=== PATIENT | female | born 1970 | race Caucasian/White ===

== ENCOUNTER 2017-01-19 20:49 | Emergency (ER) | payer OTHER ==
--- NOTE | 2017-01-19 22:23 | UC ---
Hip/Pelvis Pain - HPI Summary HPI Summary: The patient comes in today for: 1. Left hip pain: Onset: Yesterday. She fell at 12:30 at work landing on her left side. Palliative/provocative: Pressure on the area makes it worse. Quality: Soreness Region: Left hip Severity: 10 Time: Constant. Associated symptoms: Event: She fell yesterday at work and hit her head on a dumpster and landing on her left side. She went back to work. She has been taking ibuprofen. PCP: None. No LOC. Headache: Present Nausea or vomiting: None. She denies any disorientation or confusion. No history of siezure--a colleague helped her up. Not on warfarin, No amnesia. * - History Of Current Complaint Stated Complaint: LEFT HIP PAIN (WC) Time Seen by Provider: 01/19/17 22:08 Hx Obtained From: Patient Hx Last Menstrual Period: 4 weeks ago. - Allergies/Home Medications Allergies/Adverse Reactions: Allergies Allergy/AdvReac Type Severity Reaction Status Date / Time Hydrocodone AdvReac Intermediate Itching Verified 01/19/17 22:46 PMH/Surg Hx/FS Hx/Imm Hx Previously Healthy: Yes Other History Of: Negative For: HIV, Hepatitis B, Hepatitis C, Anticoagulant Therapy - Surgical History Surgical History: Yes Surgery Procedure, Year, and Place: cyst removed right breast, right shoulder rotator cuff repair. ADIANNA [employer]ILS - Family History Known Family History: Positive: Cardiac Disease - dad with CA under age 50, Diabetes - Social History Occupation: Employed Full-time Alcohol Use: None Substance Use Type: None Smoking Status (MU): Heavy Every Day Tobacco Smoker Type: Cigarettes Amount Used/How Often: 1/2 pack per day Length of Time of Smoking/Using Tobacco: age 16 Have You Smoked in the Last Year: Yes Household Exposure Type: Cigarettes - Immunization History Most Recent Influenza Vaccination: none Review of Systems Constitutional: Negative Skin: Negative Eyes: Negative ENT: Negative Respiratory: Negative Cardiovascular: Negative Gastrointestinal: Negative Genitourinary: Negative Musculoskeletal: Arthralgia Neurological: Headache All Other Systems Reviewed And Are Negative: Yes Physical Exam Triage Information Reviewed: Yes Appearance: Well-Appearing, No Pain Distress, Well-Nourished Vital Signs Reviewed: Yes Eyes: Positive: Conjunctiva Clear. Negative: Discharge ENT: Positive: Hearing grossly normal. Negative: Pharyngeal erythema, Nasal congestion, Nasal drainage, TM bulging, TM dull, TM red, Tonsillar swelling, Tonsillar exudate Dental: Negative: Gross Decay/Caries @, Dental Fracture @ Neck: Positive: Supple, Nontender, No Lymphadenopathy. Negative: Nuchal Rigidity Respiratory: Positive: Lungs clear, No respiratory distress, No accessory muscle use. Negative: Crackles, Wheezing Cardiovascular: Positive: RRR, No Murmur Abdomen Description: Positive: Nontender, No Organomegaly, Soft. Negative: Distended, Guarding Musculoskeletal: Positive: Strength Intact, ROM Intact, Edema @ - She has left greater trochanteric ecchymosis and tenderness., Other: - Back of head: no lesions, no tenderness, no swelling. Neurological: Positive: Alert, Muscle Tone Normal Psychological: Positive: Age Appropriate Behavior, Consolable Skin: Positive: rashes - ecchymosis of the left lateral hip area. No abrasion. Diagnostics - Radiology No standard instances Xray Interpretation: No Acute Changes Radiology Interpretation Completed By: Radiologist - IMPRESSION: No radiographic evidence for LEFT hip fracture. As x-rays may be negative with nondisplaced hip fracture if there is persistent clinical concern MRI or in setting of contraindication to MRI or limitation in emergent access to MRI CT would be suggested. Hip Injury Course/Dx - Course Course Of Treatment: Patient told of the negative x-ray reading. - Differential Dx/Diagnosis Provider Diagnoses: Contusion of the left leg/left greater trochanteric bursitis. Discharge - Discharge Plan Condition: Stable Disposition: HOME Patient Education Materials: Contusion in Adults (ED), Hip Bursitis (ED) Referrals: No Primary Care Phys,NOPCP [Primary Care Provider] - 1 Week (Please see your primary care provider in about a week. If you don't have a primary care provider, please reference the included sheet of local provider. If you get worse, please be seen sooner.)
[2017-01-19] MEDS ORDERED: Acetaminophen TAB* 325 MG PO ONE (22:26)
[2017-01-19 22:57] VITALS: BP 107/66
--- NOTE | 2017-01-19 22:58 | RAD ---
Indication: Posterior LEFT hip pain post fall. Comparison: June 21, 2012 Technique: AP pelvis and AP and frog-leg lateral views LEFT hip. Report: Normal articular alignment at the LEFT hip and pelvis. No fracture of the LEFT hip or pelvis evident. Minimal bilateral hip joint osteophytosis. Negative for significant joint space narrowing. Unremarkable soft tissue contours. IMPRESSION: No radiographic evidence for LEFT hip fracture. As x-rays may be negative with nondisplaced hip fracture if there is persistent clinical concern MRI or in setting of contraindication to MRI or limitation in emergent access to MRI CT would be suggested.
--- NOTE | 2017-01-20 11:58 | UC ---
Progress - Progress Note Progress Note: NOTE FOR OUT OF WORK TODAY AND MONDAY PROVIDED. PT CAN SEE [facility] IF SHE CHOOSES. CALL [phone] TO SCHEDULE AN APPT IF DESIRED. CALL WITH ANY NEW QUESTIONS OR CONCERNS.
== END 2017-01-19 23:23 | disposition home or self-care (01) ==
LOC: UCCORT 20:49
DX: Z72.0 Tobacco use (principal); S70.12XA Contusion of left thigh, initial encounter; W18.39XA Other fall on same level, initial encounter; Y93.9 Activity, unspecified; Y92.69 Other specified industrial and construction area as the place of occurrence of the external cause; Y99.0 Civilian activity done for income or pay
CPT/HCPCS: 99212; A9270-GY; G0463

== ENCOUNTER 2018-03-28 09:36 | Emergency (ER) | payer OTHER ==
[2018-03-28 10:17] VITALS: BP 104/69
--- NOTE | 2018-03-28 10:39 | ED ---
Throat Pain/Nasal Congestion - HPI Summary HPI Summary: 47 yr old with sinus pressure, post nasal drip, coughing for 6 days. She has had fever and chills. Denies SOB. She is a smoker. - History of Current Complaint Chief Complaint: UCRespiratory Time Seen by Provider: 03/28/18 10:22 - Allergies/Home Medications Allergies/Adverse Reactions: Allergies Allergy/AdvReac Type Severity Reaction Status Date / Time hydrocodone Allergy Unknown ITHCHING Verified 03/28/18 10:08 Home Medications: Home Medications Ibuprofen TAB* [Advil TAB*] 800 mg PO Q6H PRN 03/28/18 [History Confirmed ] PMH/Surg Hx/FS Hx/Imm Hx Endocrine/Hematology History: Denies: Hx Anticoagulant Therapy, Hx Diabetes, Hx Thyroid Disease Cardiovascular History: Denies: Hx Congestive Heart Failure, Hx Deep Vein Thrombosis, Hx Hypertension , Hx Myocardial Infarction, Hx Pacemaker/ICD Respiratory History: Denies: Hx Asthma, Hx Chronic Obstructive Pulmonary Disease (COPD), Hx Lung Cancer, Hx Pneumonia, Hx Pulmonary Embolism GI History: Denies: Hx Gall Bladder Disease, Hx Gastrointestinal Bleed, Hx Ulcer, Hx Urosepsis History: Denies: Hx Kidney Stones, Hx Renal Disease Neurological History: Denies: Hx Dementia, Hx Migraine, Hx Seizures, Hx Transient Ischemic Attacks (TIA) Psychiatric History: Denies: Hx Anxiety, Hx Depression, Hx Schizophrenia, Hx Bipolar Disorder - Cancer History Hx Chemotherapy: No Hx Radiation Therapy: No - Surgical History Surgery Procedure, Year, and Place: cyst removed right breast, right shoulder rotator cuff repair. ADIANNA [employer] Infectious Disease History: No Infectious Disease History: Denies: Hx Clostridium Difficile, Hx Hepatitis, Hx Human Immunodeficiency Virus (HIV), Hx of Known/Suspected MRSA, Hx Shingles, Hx Tuberculosis, Hx Known/ Suspected VRE, Hx Known/Suspected VRSA, History Other Infectious Disease, Traveled Outside the [place] in Last 30 Days - Family History Known Family History: Positive: None, Cardiac Disease - dad with CT under age 50 , Diabetes - Social History Lives: With Family Alcohol Use: Rare Substance Use Type: Reports: None Hx Tobacco Use: Yes Smoking Status (MU): Heavy Every Day Tobacco Smoker Type: Cigarettes Amount Used/How Often: 1/2 pack per day Length of Time of Smoking/Using Tobacco: age 16 Have You Smoked in the Last Year: Yes Review of Systems Constitutional: Negative Positive: Nasal Discharge Positive: Cough All Other Systems Reviewed And Are Negative: Yes Physical Exam Triage Information Reviewed: Yes Vital Signs On Initial Exam: Initial Vitals Temp Pulse Resp BP Pulse Ox 98.6 F 81 20 104/69 97 03/28/18 10:10 03/28/18 10:10 03/28/18 10:10 03/28/18 10:10 03/28/18 10:10 Vital Signs Reviewed: Yes Appearance: Positive: Well-Appearing, No Pain Distress Skin: Positive: Warm, Skin Color Reflects Adequate Perfusion Head/Face: Positive: Normal Head/Face Inspection Eyes: Positive: EOMI ENT: Positive: TMs normal, Sinus tenderness, Uvula midline. Negative: Muffled voice, Hoarse voice Neck: Positive: Nontender Respiratory/Lung Sounds: Positive: Clear to Auscultation, Breath Sounds Present Cardiovascular: Positive: RRR. Negative: Murmur Abdomen Description: Positive: Nontender Musculoskeletal: Positive: Strength/ROM Intact Neurological: Positive: Sensory/Motor Intact, Alert, Oriented to Person Place, Time, CN Intact II-III Psychiatric: Positive: Normal Diagnostics - Vital Signs Vital Signs Temp Pulse Resp BP Pulse Ox 03/28/18 10:10 98.6 F 81 20 104/69 97 - Laboratory Lab Statement: Any lab studies that have been ordered have been reviewed, and results considered in the medical decision making process. EENT Course/Dx - Course Course Of Treatment: 47 yr old female with sinusitis. Rx Cefdinir - Diagnoses Provider Diagnoses: Sinusitis Discharge - Sign-Out/Discharge Documenting (check all that apply): Patient Departure All imaging exams completed and their final reports reviewed: No Studies - Discharge Plan Condition: Good Disposition: HOME Prescriptions: Cefdinir [Cefdinir 300 MG CAP] 300 mg PO BID #20 cap Patient Education Materials: Sinusitis (ED) Referrals: No Primary Care Phys,NOPCP [Primary Care Provider] - [facility] [place] [facility]FERR[facility] [Outside] - 4 Days - Billing Disposition and Condition Condition: GOOD Disposition: Home
== END 2018-03-28 10:40 | disposition home or self-care (01) ==
LOC: UCCORT 09:36
DX: J32.9 Chronic sinusitis, unspecified (principal); Z88.6 Allergy status to analgesic agent; F17.210 Nicotine dependence, cigarettes, uncomplicated
CPT/HCPCS: 99212; G0463

== ENCOUNTER 2018-06-03 13:12 | Emergency (ER) | payer OTHER ==
[2018-06-03 13:51] VITALS: BP 103/70
--- NOTE | 2018-06-03 14:10 | UC ---
HPI BURN - HPI Summary HPI Summary: 47 year old female states she accidentally touched the top of her wood stove last evening with the lateral aspect of her right hand. States she was carrying some wood and lost her balance and reached out touching stove. Immediately blistered up and large blister to proximal end of burn opened up. Reports small amount of clear drainage from blister. Pain is well managed with OTC naproxen. Denies fever or chills. - History of Current Complaint Chief Complaint: UCBurn Stated Complaint: BURN ON RIGHT WRIST AND HAND Time Seen by Provider: 06/03/18 13:55 Hx Obtained From: Patient Hx Last Menstrual Period: EARLY FEBRUARY , HAS ADIANNA IMPLANT Occurred: Hours Ago Length of Exposure: Seconds Current Severity: Moderate Pain Intensity: 7 Location: RUE - See HPI Character: Direct Thermal Contact Alleviating Factor(s): Cool Soaks, Other - OTC analgesic Occupational Injury: No - Allergy/Home Medications Allergies/Adverse Reactions: Allergies Allergy/AdvReac Type Severity Reaction Status Date / Time hydrocodone AdvReac Unknown Itching Verified 06/03/18 13:46 Home Medications: Home Medications Naproxen Sodium [Naproxen 220 mg] 440 mg PO Q12H PRN 06/03/18 [History Confirmed 06/03/18] PMH/Surg Hx/FS Hx/Imm Hx Previously Healthy: Yes - Denies significant PMH Other History Of: Negative For: HIV, Hepatitis B, Hepatitis C, Anticoagulant Therapy - Surgical History Surgical History: Yes Surgery Procedure, Year, and Place: cyst removed right breast, right shoulder rotator cuff repair. ADIANNA [employer]ILS - Family History Known Family History: Positive: Cardiac Disease - dad with PA under age 50, Diabetes - Social History Occupation: Employed Full-time Lives: With Family Alcohol Use: Rare Substance Use Type: None Smoking Status (MU): Heavy Every Day Tobacco Smoker Type: Cigarettes Amount Used/How Often: 1/2 PPD Length of Time of Smoking/Using Tobacco: Since Age 16 Have You Smoked in the Last Year: Yes Household Exposure Type: Cigarettes - Immunization History Most Recent Influenza Vaccination: none Most Recent Tetanus Shot: ~2015 Most Recent Pneumonia Vaccination: N/A Review of Systems All Other Systems Reviewed And Are Negative: Yes Constitutional: Positive: Negative Skin: Positive: Other - See HPI Motor: Positive: Negative Neurovascular: Positive: Negative Musculoskeletal: Positive: Negative Is Patient Immunocompromised?: No Physical Exam Triage Information Reviewed: Yes Appearance: Well-Appearing, No Pain Distress, Well-Nourished Vital Signs: Initial Vital Signs Temp 98.1 F 06/03/18 13:43 Pulse 80 06/03/18 13:43 Resp 16 06/03/18 13:43 BP 103/70 06/03/18 13:43 Pulse Ox 99 06/03/18 13:43 Respiratory: Positive: Lungs clear, Normal breath sounds, No respiratory distress Cardiovascular: Positive: RRR, No Murmur, Pulses Normal, Brisk Capillary Refill Musculoskeletal Exam: Normal Neurological: Positive: Alert, Other: - Sensation intact distally Skin: Positive: Significant Lesion(s) - See diagram Images Hands: 1 - 2nd degree burn measuring 9.5 x 2.5 cm with open area measuring 3.5 x 2.5 cm to the proximal end of the burn. Blister intact to remaining burn. No evidence of infection. Burn Calculation - [place] Formula for Fluid Resuscitation Weight: 135 lb 24 -Hour Fluid Replacement: 0.0 Course/Dx Burn - Course Course Of Treatment: 47 year old female accidentally touched the top of her wood stove last evening with the lateral aspect of her right hand. Sustained 2nd degree armstrong with both open and intact blisters. No evidence of infection. The wound was cleansed with soap and water, antibiotic ointment applied, and non -stick gauze dressing applied. Wound care and warning symptoms were discussed with patient. She is to follow up with her PCP in 7 days for wound check. - Differential Dx - Burn Differential Diagnoses: Direct Contact Thermal Burn - Diagnoses Clinic Provider Diagnoses: 2nd degree burn right hand Discharge - Sign-Out/Discharge Documenting (check all that apply): Patient Departure All imaging exams completed and their final reports reviewed: No Studies - Discharge Plan Condition: Stable Disposition: HOME Patient Education Materials: Second Degree Burn (ED) Forms: *Work Release Referrals: No Primary Care Phys,NOPCP [Primary Care Provider] - Additional Instructions: Gently clean the wound with a mild soap and water twice daily. Apply an antibiotic ointment such as bacitracin to the the wound and cover with a non- stick bandage. This should be changed twice daily or any time the dressing becomes wet or soiled. Use over the counter pain medication such as acetaminophen (Tylenol), ibuprofen (Advil, Motrin), or naproxen (Aleve) according to directions as needed for pain. Follow up with your primary care provider in 7 days for a wound check. Watch for signs of infection including fever greater than 100.5 F, pain that is not managed by pain medication, redness that spreads, increased swelling, pus draining from wound, or any worsening of symptoms. Seek immediate medical attention if any of these occur. - Billing Disposition and Condition Condition: STABLE Disposition: Home - Attestation Statements Provider Attestation: Per institutional requirements, I have reviewed the chart, however, I was not consulted specifically or made aware of this patient by the midlevel provider. I did not personally evaluate, interact with , or disposition this patient.
== END 2018-06-03 14:35 | disposition home or self-care (01) ==
LOC: UCCORT 13:12
DX: T23.251A Burn of second degree of right palm, initial encounter (principal); T31.0 Burns involving less than 10% of body surface; X15.0XXA Contact with hot stove (kitchen), initial encounter; Y93.89 Activity, other specified; Y92.009 Unspecified place in unspecified non-institutional (private) residence as the place of occurrence of the external cause; Z88.5 Allergy status to narcotic agent; F17.210 Nicotine dependence, cigarettes, uncomplicated
CPT/HCPCS: 16020; 99211; G0463

== ENCOUNTER 2019-10-03 15:16 | Emergency (ER) | payer OTHER ==
[2019-10-03 16:01] VITALS: BP 97/71
[2019-10-03 17:46] LABS: Influenza A Molecular Negative (Negative); Influenza B Molecular Negative (Negative)
--- NOTE | 2019-10-03 18:03 | UC ---
Respiratory Complaint HPI - HPI Summary HPI Summary: 49 yo female with about 24 hour hx of nasal congestion/cough/profound fatigue/ myalgias and intermittent dyspnea cough not productive has felt feverish/no documented fever + chills no chest pain she states her coworker at [employer] is currently under quarantine due to exposure to person with Covid-19\ she cleaned his room - History of Current Complaint Chief Complaint: UCRespiratory Stated Complaint: ACHY RUNNY NOSE WEAK Time Seen by Provider: 10/03/19 18:01 Hx Obtained From: Patient Hx Last Menstrual Period: EARLY FEBRUARY , HAS ADIANNA IMPLANT Onset/Duration: Gradual Onset Timing: Constant Severity Initially: Mild Severity Currently: Moderate Pain Intensity: 4 Character: Cough: Nonproductive Aggravating Factors: Nothing Alleviating Factors: Nothing Associated Signs And Symptoms: Positive: Fever - hao, Chills, Nasal Congestion - Risk Factors Pulmonary Embolism Risk Factors: Negative Cardiac Risk Factors: Negative Pseudomonas Risk Factors: Negative Tuberculosis Risk Factors: Negative - Allergies/Home Medications Allergies/Adverse Reactions: Allergies Allergy/AdvReac Type Severity Reaction Status Date / Time hydrocodone AdvReac Unknown Itching Verified 10/03/19 15:57 Home Medications: Home Medications NK [No Home Medications Reported] 10/03/19 [History Confirmed 10/03/19] PMH/Surg Hx/FS Hx/Imm Hx Previously Healthy: Yes Other History Of: Negative For: HIV, Hepatitis B, Hepatitis C, Anticoagulant Therapy - Surgical History Surgical History: Yes Surgery Procedure, Year, and Place: cyst removed right breast, right shoulder rotator cuff repair. ADIANNA [employer] - Family History Known Family History: Positive: Cardiac Disease - dad with [place] under age 50, Hypertension, Diabetes - Social History Alcohol Use: None Substance Use Type: None Smoking Status (MU): Heavy Every Day Tobacco Smoker Type: Cigarettes Amount Used/How Often: 1/2 PPD Length of Time of Smoking/Using Tobacco: Since Age 16 Have You Smoked in the Last Year: Yes Household Exposure Type: Cigarettes - Immunization History Most Recent Influenza Vaccination: none Most Recent Tetanus Shot: ~2015 Most Recent Pneumonia Vaccination: N/A Review of Systems All Other Systems Reviewed And Are Negative: Yes Constitutional: Positive: Fever - ??/has felt feverish, Chills, Fatigue Skin: Positive: Rash Eyes: Positive: Negative ENT: Positive: Nasal Discharge Respiratory: Positive: Cough Cardiovascular: Positive: Negative Gastrointestinal: Positive: Negative Genitourinary: Positive: Negative Motor: Positive: Negative Neurovascular: Positive: Negative Musculoskeletal: Positive: Negative Neurological/Mental Status: Positive: Negative Psychological: Positive: Negative Physical Exam Triage Information Reviewed: Yes Appearance: Well-Appearing, No Pain Distress, Well-Nourished Vital Signs: Initial Vital Signs Temp 98.3 F 10/03/19 15:54 Pulse 90 10/03/19 15:54 Resp 18 10/03/19 15:54 BP 97/71 10/03/19 15:54 Pulse Ox 99 10/03/19 15:54 Vital Signs Reviewed: Yes Eyes: Positive: Conjunctiva Clear ENT: Positive: Hearing grossly normal, Pharynx normal, Nasal congestion, Nasal drainage, TMs normal. Negative: Tonsillar swelling, Tonsillar exudate, Trismus , Muffled voice, Hoarse voice, Dental tenderness, Sinus tenderness, Uvula midline Dental Exam: Normal Neck: Positive: Supple, Nontender, No Lymphadenopathy Respiratory: Positive: Lungs clear, Normal breath sounds, No respiratory distress, No accessory muscle use Cardiovascular: Positive: RRR, No Murmur, Pulses Normal Abdomen Description: Positive: Nontender Bowel Sounds: Positive: Present Musculoskeletal Exam: Normal Musculoskeletal: Positive: No Edema Neurological: Positive: Alert Psychological Exam: Normal Skin Exam: Normal Diagnostics - Laboratory Lab Results: influenza (-) strep (-) Respiratory Course/Dx - Differential Dx/Diagnosis Provider Diagnosis: Viral URI with cough Discharge ED - Sign-Out/Discharge Documenting (check all that apply): Patient Departure All imaging exams completed and their final reports reviewed: No Studies - Discharge Plan Condition: Stable Disposition: HOME Patient Education Materials: Upper Respiratory Infection (ED) Forms: *Work Release Additional Instructions: tests pending I suggest you stay at home until test results in (will take 3-4 days) rest fluids saline nasal spray : two sprays twice daily for three days - Billing Disposition and Condition Condition: STABLE Disposition: Home
== END 2019-10-03 20:10 | disposition home or self-care (01) ==
LOC: UCCORT 15:16
DX: J06.9 Acute upper respiratory infection, unspecified (principal); R05 Cough; R53.83 Other fatigue; R21 Rash and other nonspecific skin eruption; F17.210 Nicotine dependence, cigarettes, uncomplicated; Z88.5 Allergy status to narcotic agent
CPT/HCPCS: 87651; 99212; G0463

== ENCOUNTER 2023-10-10 12:50 | Observation (INO) ==
[2023-10-10 14:30] LABS: ABS Basophils 0.1 10^3/uL (0.0-0.1); ABS Eosinophils 0.2 10^3/uL (0.0-0.5); ABS Lymphocytes 3.8 10^3/uL (1.0-4.8); ABS Monocytes 1.2 10^3/uL (0.0-0.9); ABS Neutrophils 8.8 10^3/uL (1.5-7.6); ABS Nucleated RBC 0.01 10^3/ul; Eosinophil % 1.1 %; Hematocrit 44.8 % (35-45); Hemoglobin 15.2 g/dL (11.5-14.3); Mean Corpuscular Hemoglobin 30.6 pg (27-33); Mean Corpuscular Hgb Conc 33.9 g/dL (31-36); Mean Corpuscular Volume 90.2 fL (80-97); Mean Platelet Volume 7.2 fL (7.5-11.2); Platelet Count 261 10^3/uL (150-450); Red Blood Count 4.96 10^6/uL (3.63-4.92); Red Cell Distribution Width 15.2 % (12-17); White Blood Count 14.1 10^3/uL (3.8-11.8)
[2023-10-10 14:38] LABS: Urine Appearance Clear; Urine Bilirubin Negative (Negative); Urine Blood Negative (Negative); Urine Color Colorless; Urine Glucose Negative (Negative); Urine Ketones Negative (Negative); Urine Nitrite Negative (Negative); Urine Protein Negative (Negative); Urine Specific Gravity 1.004 (1.002-1.030); Urine Urobilinogen Negative (Negative); Urine pH 5.5 (5.0-8.0)
[2023-10-10 14:52] LABS: High Sens Troponin Baseline < 3 pg/mL (<15)
[2023-10-10 14:59] LABS: Activated Partial Thrombo Time 29.8 seconds (26.0-38.0); INR 0.95 (0.83-1.13)
[2023-10-10 15:15] LABS: ALT 12 U/L (7-52); AST 12 U/L (13-39); Albumin 4.3 g/dL (3.2-5.2); Albumin/Globulin Ratio 1.9 (1-3); Alkaline Phosphatase 79 U/L (35-149); Anion Gap 7 mmol/L (2-16); Blood Urea Nitrogen 11 mg/dL (6-24); CO2 Carbon Dioxide 25 mmol/L (22-32); Calcium 9.1 mg/dL (8.6-10.3); Chloride 106 mmol/L (101-111); Cholesterol 176 mg/dL; Creatinine, Serum 0.56 mg/dL (0.51-0.95); Globulin 2.3 g/dL (2-4); Glucose 88 mg/dL (70-100); HDL Cholesterol 44.2 mg/dL; Indirect Bilirubin 0.2 mg/dL (0.3-1.0); LDL Cholesterol 99 mg/dL; Potassium 4.1 mmol/L (3.5-5.0); Sodium 138 mmol/L (135-145); Total Bilirubin 0.2 mg/dL (0.2-1.0); Total Protein 6.6 g/dL (6.4-8.9); Triglycerides 166 mg/dL; eGFR CKD-EPI 109.1 (>60)
[2023-10-10 15:20] LABS: TSH Ultra Thyroid Stim Horm 1.17 mcIU/mL (0.34-5.60)
[2023-10-10 15:22] LABS: Free T4 0.94 ng/dL (0.61-1.12)
[2023-10-10 16:10] LABS: High Sensitivity Troponin 1 Hr < 3 pg/mL (<15)
[2023-10-10] MEDS: Nicotine PATCH 21 MG/24 HR PATCH TRANSDERM ONE (19:50)
[2023-10-10 20:17] LABS: HCG Pregnancy 2.01 mIU/mL
[2023-10-10] MEDS: Gadoteridol (CONTRAST) 279.3 MG/ML 10 ML IV ONE (21:57)
[2023-10-10] MEDS: Enoxaparin 40 MG/0.4 ML SYR SUBCUT SCH (23:14)
[2023-10-11 06:06] LABS: ABS Eosinophils 0.3 10^3/uL (0.0-0.5); ABS Lymphocytes 4.5 10^3/uL (1.0-4.8); ABS Monocytes 0.9 10^3/uL (0.0-0.9); ABS Neutrophils 4.5 10^3/uL (1.5-7.6); ABS Nucleated RBC 0.01 10^3/ul; Eosinophil % 3.2 %; Hematocrit 43.8 % (35-45); Hemoglobin 14.9 g/dL (11.5-14.3); Lymphocyte % 43.6 %; Mean Corpuscular Hemoglobin 30.8 pg (27-33); Mean Corpuscular Volume 90.4 fL (80-97); Mean Platelet Volume 7.5 fL (7.5-11.2); Nucleated Red Blood Cells % 0.1 %/100WBC (0.0-0.8); Platelet Count 238 10^3/uL (150-450); Red Blood Count 4.84 10^6/uL (3.63-4.92); Red Cell Distribution Width 15.5 % (12-17); White Blood Count 10.2 10^3/uL (3.8-11.8)
[2023-10-11 06:46] LABS: Calcium 8.5 mg/dL (8.6-10.3); Creatinine, Serum 0.56 mg/dL (0.51-0.95); eGFR CKD-EPI 109.1 (>60)
[2023-10-11 12:21] VITALS: BP 134/73
== END 2023-10-11 12:21 | disposition home or self-care (01) ==
LOC: EDHOLD 12:50 → ED 12:50 → SUATTDRO 21:12 → MEDTELE 10-11 09:54 → EDHOLD 10-11 12:20
PROVIDERS: ADMIT Internal Medicine; ATTEND Internal Medicine